=== PATIENT | female | born 1945 | race Asian ===

== ENCOUNTER 2017-02-01 21:21 | Emergency (ER) | payer MEDICARE, OTHER ==
[~2017-02-01] VITALS: Ht 152.4 cm; Wt 62.0 kg
[~2017-02-01 21:21] MED LIST: CEPH500C PO; CRES10 PO; CYCL-319 PO; GLIP5TAB13 PO; HYDR-3498 PO; IBUP-1542 PO; INSU100C3 SC; INSU100I15 SC; LEVO25TA53 PO; LIRA0.6P SQ; LOSA50TA6 PO; MTF1000T PO
[2017-02-01 21:23] VITALS: Ht 152.4 cm; Wt 62.0 kg
[2017-02-01] MEDS ORDERED: ACETAMINOPHEN 500 MG TAB PO STA (22:01)
--- NOTE | 2017-02-01 23:05 | RADRPT ---
PROCEDURE: XR left foot. CLINICAL INDICATION: Post traumatic left foot pain, injury 2 weeks ago TECHNIQUE: AP, lateral and oblique views of the left foot were obtained. COMPARISON: None. FINDINGS: Mineralization is within normal limits. Abnormal fracture involving the medial base of the second m etatarsal is present with divergence of the first and second metatarsal, findings consistent with a Lisfranc fracture dislocation. The metatarsal phalangeal and interphalangeal joints are intact. Th e tarsal bones appear preserved. The soft tissues are unremarkable. There is no evidence for a radi opaque foreign body. IMPRESSION: Pattern consistent with a Lisfranc fracture dislocation of the left foot. RPTAT:HJJR Physician Jack Date Time Electronically viewed and signed by Physician Jack on 02/01/2017 23:05 /
--- NOTE | 2017-02-01 23:05 | RADRPT ---
PROCEDURE: XR left ankle. CLINICAL INDICATION: Post traumatic left ankle pain after injury 2 weeks ago TECHNIQUE: AP , oblique and lateral views of the left ankle were performed. COMPARISON: None. FINDINGS: There is normal mineralization and alignment. No fracture or osseous lesion is identified. The ankle mortis and talar dome are intact. The soft tissues are unremarkable. There is no evidence for a rad iopaque foreign body. RPTAT:HJJR IMPRESSION: Unremarkable left ankle series. Physician Jack Date Time Electronically viewed and signed by Physician Jack on 02/01/2017 23:05 /
[2017-02-02] MEDS ORDERED: IBUP400T22 PO (01:52)
--- NOTE | 2017-02-02 02:01 | ERD ---
ER Documentation Chief Complaint Date/Time DATE: 02/02/17 TIME: 01:58 Chief Complaint left foot pain, sp trip and fall x 2 weeks HPI 71-year-old female with a past medical history of diabetes, hypertension, glaucoma presents the ED complaining of a left foot injury that occurred 2 weeks ago. States that she was in the [facility] and was trying to walk up the stairs and actually missed a step. Describes the pain as a sharp pain and rates it a 8 out of 10. States that she did not see a physician and the [facility]. Denies any chest pain, shortness of breath, loss of sensation, loss of range of motion, fever, chills, weakness, numbness or tingling. States that she is still able to ambulate however it is painful. ROS All systems reviewed and are negative except as per history of present illness. Medications Home Meds Active Scripts Ibuprofen* (Motrin*) 400 Mg Tab, 400 MG PO Q6H Y for PAIN AND OR ELEVATED TEMP, #30 TAB take with food Prov:DARRELL MEDEL PA-C 02/02/17 Hydrocodone Bit-Acetaminophen* ([place]*) 5-325 Mg Tab, 1 TAB PO Q6 Y for PAIN, # 20 TAB Prov:BRYANNA KHANNA NP 11/04/15 Ibuprofen* (Motrin*) 600 Mg Tab, 600 MG PO Q6H Y for PAIN AND OR ELEVATED TEMP, #30 TAB Prov:BRYANNA KHANNA NP 11/04/15 Cyclobenzaprine Hcl* (Cyclobenzaprine Hcl*) 10 Mg Tablet, 5 MG PO TID, #15 TAB Prov:BRYANNA KHANNA NP 11/04/15 Cephalexin* (Cephalexin*) 500 Mg Capsule, 500 MG PO BID for 5 Days, CAP Prov:IZZY PISANO PA-C 04/16/15 Reported Medications Glipizide* (Glipizide*) 5 Mg Tablet, PO DAILY, TAB 11/21/14 Liraglutide (Victoza 2-Aron) 0.6 Mg/0.1 Ml Pen.injctr, SQ DAILY, SYR 11/21/14 Insulin Aspart (Novolog) 100 U/Ml Cartridge, 0 SC SLIDING SCALE AC, EA 11/21/14 Insulin Glargine,Hum.rec.anlog (Lantus Solostar) 100 Units/Ml Pen, 0 SC DAILY 11/21/14 Losartan Potassium* (Losartan Potassium*) 50 Mg Tablet, PO DAILY, TAB 11/21/14 Rosuvastatin Calcium* (Crestor*) 10 Mg Tablet, PO HS, TAB 11/21/14 Levothyroxine Sodium* (Levothyroxine Sodium*) 25 Mcg Tablet, 25 MCG PO DAILY, TAB 11/21/14 Metformin* (Glucophage*) 1,000 Mg Tablet, 1000 MG PO BID, TAB 11/21/14 Allergies Allergies: Coded Allergies: Penicillins (Verified Allergy, Unknown, 11/04/15) PMhx/Soc History of Surgery: Yes (c/section, hysterectomy, left breast, cataract X 2) Anesthesia Reaction: No Hx Neurological Disorder: No Hx Respiratory Disorders: No Hx Cardiac Disorders: Yes (htn, dm) Hx Psychiatric Problems: No Hx Alcohol Use: No Hx Substance Use: No Hx Tobacco Use: No Smoking Status: Never smoker Physical Exam Vitals Vital Signs Date Time Temp Pulse Resp B/P Pulse Ox O2 Delivery O2 Flow Rate FiO2 02/01/17 21:23 97.6 88 20 128/66 100 Physical Exam Const: [id number], well-nourished. In no acute distress. Head: Atraumatic, normocephalic Eyes: Normal Conjunctiva without injection ENT: Normal external ear, nose and mouth. Neck: Full range of motion. No meningismus. Resp: Clear to auscultation bilaterally. No wheezing, rhonchi, rales, or crackles. No accessory muscle use. No retractions. Cardio: Regular rate and rhythm, no murmurs Skin: No petechiae or rashes Back: No midline tenderness. No CVA tenderness. Ext: No cyanosis, or edema. Tenderness to palpation of the dorsal aspect of patient's left mid foot region. Slightly edematous and erythematous. Cap refill less than 2 seconds. Distal pulses intact bilaterally. No ulcers noted. No deformities noted. Neur: Awake and alert. Normal gait and coordination. Muscle strength 5/5. Sensation intact bilaterally. Psych: Normal Mood and Affect Results 24 hrs Current Medications Medications (Trade) Dose Ordered Sig/Pedrito Route PRN Reason Start Time Stop Time Status Last Admin Dose Admin Acetaminophen (Tylenol Tab) 500 mg ONCE STAT PO 02/01/17 22:01 02/01/17 22:04 DC 02/01/17 22:16 Procedures/MDM This is a 71-year-old female with a past medical history of diabetes, hypertension, glaucoma presents the ED complaining of left foot pain status post a mechanical fall 2 weeks ago. Patient is afebrile nontoxic appearing. Patient has normal vital signs. Left foot and ankle x-ray was ordered to further evaluate patient. PROCEDURE: XR left ankle. CLINICAL INDICATION: Post traumatic left ankle pain after injury 2 weeks ago TECHNIQUE: AP , oblique and lateral views of the left ankle were performed. COMPARISON: None. FINDINGS: There is normal mineralization and alignment. No fracture or osseous lesion is identified. The ankle mortis and talar dome are intact. The soft tissues are unremarkable. There is no evidence for a radiopaque foreign body. RPTAT:HJJR IMPRESSION: Unremarkable left ankle series. PROCEDURE: XR left foot. CLINICAL INDICATION: Post traumatic left foot pain, injury 2 weeks ago TECHNIQUE: AP, lateral and oblique views of the left foot were obtained. COMPARISON: None. FINDINGS: Mineralization is within normal limits. Abnormal fracture involving the medial base of the second metatarsal is present with divergence of the first and second metatarsal, findings consistent with a Lisfranc fracture dislocation. The metatarsal phalangeal and interphalangeal joints are intact. The tarsal bones appear preserved. The soft tissues are unremarkable. There is no evidence for a radiopaque foreign body. IMPRESSION: Pattern consistent with a Lisfranc fracture dislocation of the left foot. Patient sustained a Lisfranc fracture dislocation of the left foot. This case was discussed with my supervising physician, Dr. Vicente who consulted Dr. shilo Charles, flight control specialist. Patient can be managed on outpatient basis and follow-up with him in the clinic. Patient is neurovascularly in tact. Patient is placed in a posterior ankle splint. Patient was given crutches to help with ambulation. Splint Assessment: Neurovascularly intact pre and post splint placement with good fit. Patient's extremity symptoms have stabilized while they have been evaluated in the department and are appropriate for outpatient follow up. No evidence of compartment syndrome, neurologic injury, vascular injury, open joint, open fracture, tendon laceration, septic arthritis, osteomyelitis, DVT, foreign body , or other emergent conditions. Discharge medications: Ibuprofen Follow up with primary care physician in 1-2 days. Instructed patient to return to the ED sooner for any worsening symptoms. Patient's questions were answered. Patient understood and agreed with discharge plan. Patient discharged stable. Departure Diagnosis: Primary Impression: Lisfranc fracture Condition: Stable Patient Instructions: Fracture, Foot Referrals: ROSAURA ZAMORANO MD [facility] YOU HAVE RECEIVED A MEDICAL SCREENING EXAM AND THE RESULTS INDICATE THAT YOU DO NOT HAVE A CONDITION THAT REQUIRES URGENT TREATMENT IN THE EMERGENCY DEPARTMENT. FURTHER EVALUATION AND TREATMENT OF YOUR CONDITION CAN WAIT UNTIL YOU ARE SEEN IN YOUR DOCTORS OFFICE WITHIN THE NEXT 1-2 DAYS. IT IS YOUR RESPONSIBILITY TO MAKE AN APPOINTMENT FOR FOLOW-UP CARE. IF YOU HAVE A PRIMARY DOCTOR --you should call your primary doctor and schedule an appointment IF YOU DO NOT HAVE A PRIMARY DOCTOR YOU CAN CALL OUR PHYSICIAN REFERRAL HOTLINE AT IF YOU CAN NOT AFFORD TO SEE A PHYSICIAN YOU CAN CHOSE FROM THE FOLLOWING [facility] [address] [facility]. [facility] [address] [facility] [address] [facility] [facility] [address] [facility] [facility] [address] [facility] [facility]. [address] [facility]. [facility] YOU HAVE RECEIVED A MEDICAL SCREENING EXAM AND THE RESULTS INDICATE THAT YOU DO NOT HAVE A CONDITION THAT REQUIRES URGENT TREATMENT IN THE EMERGENCY DEPARTMENT. FURTHER EVALUATION AND TREATMENT OF YOUR CONDITION CAN WAIT UNTIL YOU ARE SEEN IN YOUR DOCTORS OFFICE WITHIN THE NEXT 1-2 DAYS. IT IS YOUR RESPONSIBILITY TO MAKE AN APPOINTMENT FOR FOLOW-UP CARE. IF YOU HAVE A PRIMARY DOCTOR --you should call your primary doctor and schedule and appointment IF YOU DO NOT HAVE A PRIMARY DOCTOR YOU CAN CALL OUR PHYSICIAN REFERRAL HOTLINE AT . IF YOU CAN NOT AFFORD TO SEE A PHYSICIAN YOU CAN CHOSE FROM THE FOLLOWING [facility] INSTITUTIONS: [facility] [address] [place] [address] [facility] [address] [place] [address] [facility] [address] [place] [address] [facility] Urgent Care 7 a.m.- 11 p.m. Every Day of the Week NO APPOINTMENT OR AUTHORIZATION NEEDED SO [facility] Hours: Mon-Fri 9:00 AM - 5:00 PM Additional Instructions: YOUR CASE HAS BEEN DISCUSSED WITH DR. ZAMORANO, ROUGH ROUNDER MACHINE. FOLLOW UP WITH DR. ZAMORANO IN 2 DAYS IN THE CLINIC. Return to this facility if you are not improving as expected. DARRELL MEDEL PA-C Feb 02, 2017 02:01
[2017-02-02 02:38] VITALS: BP 116/67; PULSE 79; RESP 16
--- NOTE | 2017-02-02 04:01 | QN ---
Documentation Comment I examined the patient, discussed the patient with the on-call orthopedist Dr Mora who recommended discharging the patient and he would follow-up the patient in the office. The patient agrees with the plan ORLANDO MONTEMAYOR MD Feb 02, 2017 04:01
== END 2017-02-02 02:39 | disposition home or self-care (01) ==
LOC: FTE 21:21
DX: S93.325A Dislocation of tarsometatarsal joint of left foot, initial encounter (principal); I10 Essential (primary) hypertension; E11.9 Type 2 diabetes mellitus without complications; W01.0XXA Fall on same level from slipping, tripping and stumbling without subsequent striking against object, initial encounter; Y92.9 Unspecified place or not applicable; Z85.3 Personal history of malignant neoplasm of breast; Z79.84 Long term (current) use of oral hypoglycemic drugs; Z79.4 Long term (current) use of insulin
CPT/HCPCS: 73610

== ENCOUNTER 2018-08-25 22:24 | Inpatient (IN) | END 2018-08-29 16:30 | disposition home health service (06) | DRG 684 ==

== ENCOUNTER 2019-04-21 14:16 | Emergency (ER) | payer MEDICARE, OTHER ==
[~2019-04-21] VITALS: Wt 65.0 kg
[~2019-04-21 14:16] MED LIST changes: +AMLO-145 PO; +BRIM10DR10 BOTH EYES; -CEPH500C PO; -CRES10 PO; +CRES20 PO; -CYCL-319 PO; +DAPA10TA PO; +DORZ10DR6 BOTH EYES; -GLIP5TAB13 PO; -HYDR-3498 PO; -IBUP-1542 PO; -INSU100C3 SC; +INSU100I12 SQ; -INSU100I15 SC; +INSU100I33 SC; -LEVO25TA53 PO; +LEVO25TA6 PO; -LIRA0.6P SQ; +LOSA100T15 PO; -LOSA50TA6 PO; +METF100010 PO; -MTF1000T PO; +SITA100T11 PO; +TRAV2.5D BOTH EYES
--- NOTE | 2019-04-21 15:14 | ERD ---
ER Documentation Chief Complaint Chief Complaint SOB ONSET LAST HPI 74-year-old woman complains of shortness of breath x4 days, she denies cough, no chest pain, no URI symptoms, no recent travel, no calf or leg swelling. Patient denies abdominal pain, no vomiting or diarrhea. Patient denies previous similar symptoms ROS All systems reviewed and are negative except as per history of present illness. Medications Home Meds Reported Medications Glucosamine Hcl (Glucosamine Hcl) Unknown Strength Tablet, 1 TAB PO DAILY, TAB 04/21/19 Insulin Glargine,Hum.rec.anlog (Basaglar Kwikpen U-100) 100 Unit/1 Ml Insuln.pen, 30 UNIT SC QAM, EA 04/21/19 Insulin Lispro (Humalog Kwikpen U-100) 100 Unit/1 Ml Insuln.pen, 0 SQ TID, EA INJECT 6 UNITS-QAM,4 UNITS-NOON,4 UNITS-QPM WITH MEALS 04/21/19 Aspirin* (Aspirin* EC) 81 Mg Tablet.dr, 81 MG PO DAILY, TAB 04/21/19 Losartan Potassium* (Losartan Potassium*) 50 Mg Tablet, 50 MG PO DAILY, TAB 04/21/19 Sitagliptin* (Januvia*) 100 Mg Tablet, 100 MG PO DAILY, #30 TAB 04/21/19 Rosuvastatin Calcium* (Crestor*) 20 Mg Tablet, 20 MG PO QHS, #30 TAB 04/21/19 Metformin Hcl* (Metformin Hcl*) 1,000 Mg Tablet, 1000 MG PO WITH BREAKFAST DINNE, #60 TAB 04/21/19 Levothyroxine Sodium* (Levothyroxine Sodium*) 25 Mcg Tablet, 25 MCG PO BEFORE BREAKFAST, #30 TAB 04/21/19 Travoprost* (Travatan Z*) 2.5 Ml Drops, 1 DROP BOTH EYES HS, #1 BOTTLE 04/21/19 Dapagliflozin Propanediol (Farxiga) 10 Mg Tablet, 10 MG PO DAILY, #30 TAB 04/21/19 Brimonidine Tartrate* (Alphagan P*) 0.1%-15 Ml Opht Drops, 1 DROP BOTH EYES Q8, #1 EA 04/21/19 Discontinued Reported Medications Losartan Potassium* (Losartan Potassium*) 100 Mg Tablet, 100 MG PO DAILY, TAB 08/25/18 Rosuvastatin Calcium* (Crestor*) 20 Mg Tablet, 20 MG PO QHS, #30 TAB 08/25/18 Levothyroxine Sodium* (Levothyroxine Sodium*) Unknown Strength Tablet, 1 TAB PO BEFORE BREAKFAST, #30 TAB 08/25/18 Dapagliflozin Propanediol (Farxiga) 10 Mg Tablet, 10 MG PO DAILY, #30 TAB 08/25/18 Travoprost* (Travatan Z*) 2.5 Ml Drops, 1 DROP BOTH EYES HS, #1 BOTTLE 08/25/18 Brimonidine Tartrate* (Brimonidine Tartrate*) 0.15%-10ML Drop Opht, 1 DROP BOTH EYES Q8, #1 EA 08/25/18 Dorzolamide/Timolol* (Dorzolamide/Timolol*) 10 Ml Drops, 1 DROP BOTH EYES BID, #1 EA 08/25/18 Sitagliptin* (Januvia*) 100 Mg Tablet, 100 MG PO DAILY, #30 TAB 08/25/18 Metformin Hcl* (Metformin Hcl*) 1,000 Mg Tablet, 1000 MG PO WITH BREAKFAST DINNE, #60 TAB 08/25/18 Insulin Lispro (Humalog Kwikpen U-100) 100 Unit/1 Ml Insuln.pen, SQ SLIDING SCALE, EA INJECT 6 UNITS-QAM, 4 UNITS-NOON, 4 UNITS-QPM 08/25/18 Discontinued Scripts Amlodipine Besylate* (Amlodipine Besylate*) 5 Mg Tablet, 5 MG PO DAILY for 30 Days, #30 TAB 6 Refills Prov:CANDICE ROSALES MD 08/29/18 Insulin Glargine,Hum.rec.anlog (Basaglar Kwikpen U-100) 100 Unit/1 Ml Insul n.pen, 30 UNITS SC QAM for 30 Days, #10 EA 6 Refills Prov:CANDICE ROSALES MD 08/29/18 Allergies Allergies: Coded Allergies: Penicillins (Verified Allergy, Unknown, 04/21/19) PMhx/Soc History of INDIGO, diabetes mellitus, glaucoma, hypertension, hypothyroidism History of Surgery: Yes (, hysterectomy,left breast mastectomy,cataract) Anesthesia Reaction: No Hx Neurological Disorder: No Hx Respiratory Disorders: No Hx Cardiac Disorders: Yes (htn) Hx Psychiatric Problems: No Hx Miscellaneous Medical Probl: Yes (DM) Hx Alcohol Use: No Hx Substance Use: No Hx Tobacco Use: No Smoking Status: Never smoker Physical Exam Vitals Vital Signs Date Temp Pulse Resp B/P (MAP) Pulse Ox O2 O2 Flow FiO2 Time Delivery Rate 04/21/19 97.6 70 26 124/61 95 Room Air 17:44 (82) 04/21/19 70 20 128/66 100 Room Air 17:01 (86) 04/21/19 77 23 120/73 96 15:04 (89) 04/21/19 98.1 84 18 131/80 96 14:25 (97) Physical Exam GENERAL: Well-developed, well-nourished, well-hydrated, anxious, afebrile HEENT: Moist mucous membranes, pink conjunctiva, no cervical spine tenderness or step-off deformities, no goiter, no jaundice or icterus, extraocular movements intact without pain. No submandibular induration, and no pharyngeal erythema NEURO: Alert and oriented 3, cranial nerves II through XII intact bilaterally, pupils equal round reactive to light, no focal deficits or facial asymmetry, sensation intact distally Strength 5/5 in upper and lower extremities bilaterally CARDIAC: Regular rate and rhythm, no murmurs rubs or gallops LUNGS: Clear bilaterally no wheezing crackles or stridor ABDOMEN: Soft nontender, no guarding, no rigidity, no rebound, no psoas sign no obturator sign. Normoactive bowel sounds SKIN: Warm and dry to touch, no abrasions, contusions, or hematomas, no lacerations, no ecchymosis, no target lesions, and without ulcers EXTREMITIES: No clubbing cyanosis or edema, calves are bilaterally symmetrical, no Homans sign, no popliteal cord sign. Distal pulses equal and bilateral PSYCH: Appears anxious Result Diagram: 04/21/19 1524 04/21/19 1524 Results 24 hrs Laboratory Tests Test 04/21/19 15:24 04/21/19 16:24 04/21/19 17:32 White Blood Count 8.3 10^3/ul Red Blood Count 4.79 10^6/ul Hemoglobin 13.8 g/dl Hematocrit 42.2 % Mean Corpuscular Volume 88.1 fl Mean Corpuscular Hemoglobin 28.8 pg Mean Corpuscular 32.7 g/dl Hemoglobin Concent Red Cell Distribution Width 13.8 % Platelet Count 221 10^3/UL Mean Platelet Volume 11.0 fl Immature Granulocytes % 0.500 % Neutrophils % 46.0 % Lymphocytes % 43.0 % Monocytes % 7.7 % Eosinophils % 1.8 % Basophils % 1.0 % Nucleated Red Blood Cells % 0.0 /100WBC Immature Granulocytes # 0.040 10^3/ul Neutrophils # 3.8 10^3/ul Lymphocytes # 3.6 10^3/ul Monocytes # 0.6 10^3/ul Eosinophils # 0.2 10^3/ul Basophils # 0.1 10^3/ul Nucleated Red Blood Cells # 0.0 10^3/ul D-Dimer 335.76 ng/ml D-Dimer Comment Urine Color STRAW Urine Clarity CLEAR Urine pH 6.0 Urine Specific [place] 1.022 Urine Ketones NEGATIVE mg/dL Urine Nitrite NEGATIVE mg/dL Urine Bilirubin NEGATIVE mg/dL Urine Urobilinogen NEGATIVE mg/dL Urine Leukocyte Esterase NEGATIVE [place]/ul Urine Hemoglobin NEGATIVE mg/dL Urine Glucose 3+ mg/dL Urine Total Protein NEGATIVE mg/dl Sodium Level 137 mmol/L Potassium Level 4.8 mmol/L Chloride Level 99 mmol/L Carbon Dioxide Level 26 mmol/L Anion Gap 12 Blood Urea Nitrogen 22 mg/dl Creatinine 0.78 mg/dl Est Glomerular Filtrat mL/min Rate mL/min Glucose Level 407 mg/dl Calcium Level 10.0 mg/dl Total Bilirubin 0.5 mg/dl Direct Bilirubin 0.00 mg/dl Indirect Bilirubin 0.5 mg/dl Aspartate Amino Transf (AST/SGOT) 28 IU/L Alanine 25 IU/L Aminotransferase (ALT/SGPT) Alkaline Phosphatase 116 IU/L Troponin I < 0.012 ng/ml B-Type Natriuretic Peptide 14 PG/ML Total Protein 8.3 g/dl Albumin 4.5 g/dl Globulin 3.80 g/dl Albumin/Globulin Ratio 1.18 Lipase 383 U/L Bedside Glucose 312 mg/dL 221 mg/dL Current Medications Medications Dose Sig/Pedrito Start Time Status Last (Trade) Ordered Route PRN Stop Time Admin Dose Reason Admin Insulin 16 unit ONCE ONCE 04/21/19 DC 04/21/19 Human SC 16:30 16:26 Lispro 04/21/19 16:31 (Humalog) Diagnostic 1 ea 2 HRS AFTER 04/21/19 DC 04/21/19 Test (Pha) HUMALOG ONCE 16:30 16:30 (Accu-Chek) XX 04/21/19 16:31 Sodium 1,000 ml @ Q1H STAT 04/21/19 DC 04/21/19 Chloride 1,000 mls/hr IV 16:14 16:21 04/21/19 17:13 Alprazolam 0.5 mg ONCE ONCE 04/21/19 DC 04/21/19 (Xanax) PO 16:30 16:37 04/21/19 16:31 Procedures/MDM IV line was established patient was placed on cable spooler rhythm strip revealed a sinus rhythm at about 80 bpm with upright P and T waves. Patient was afebrile One AP view of the chest performed, read by me reveals no acute infiltrates, normal mediastinum, sharp costophrenic and cardiac borders, no air under the diaphragm. Otherwise unremarkable chest x-ray. EKG performed, read by me revealed a normal sinus rhythm at 78 bpm, normal axis, narrow QRS complex, no concerning ST elevations or depressions noted, upright U waves noted Patient's blood sugar was elevated to 407 although bicarb was normal and she has no signs of diabetic ketoacidosis. I administered 1 L normal saline IV for hyperglycemia, alprazolam p.o. for anxie ty, and subcutaneous insulin Differential diagnoses considered, included but not limited to acute coronary syndrome, pulmonary embolism, aortic dissection, abdominal aortic aneurysm, sepsis, stroke, meningitis, encephalitis, pneumonia, appendicitis, cholecystitis, bowel obstruction, pyelonephritis, nephrolithiasis, cystitis, as well as metabolic, hematologic, and electrolyte abnormalities. As well as abscess, cellulitis, fractures, and dislocations. Patient feels much better at this time, and vital signs are normal, symptoms have improved. I did give strict instructions to return to the ED if symptoms continue or worsen, patient will otherwise follow-up with primary care physician. Patient understood instructions and agreed to plan. Disclaimer: Inadvertent spelling and grammatical errors are likely due to EHR/dictation software use and do not reflect on the overall quality of patient care. Also, please note that the electronic time recorded on this note does not necessarily reflect the actual time of the patient encounter. Departure Diagnosis: Primary Impression: Shortness of breath Additional Impressions: Acute hyperglycemia Acute dehydration Condition: Good MILLICENT DAVIS MD Apr 21, 2019 15:14
[2019-04-21] MEDS ORDERED: DAPA10TA PO (16:01)
[2019-04-21] MEDS ORDERED: TRAV2.5D BOTH EYES (16:01)
[2019-04-21] MEDS ORDERED: BRIM15DR2 BOTH EYES (16:01)
[2019-04-21] MEDS ORDERED: METF100010 PO (16:02)
[2019-04-21] MEDS ORDERED: LEVO25TA6 PO (16:02)
[2019-04-21] MEDS ORDERED: CRES20 PO (16:03)
[2019-04-21] MEDS ORDERED: SITA100T11 PO (16:03)
[2019-04-21] MEDS ORDERED: ASPI-817 PO (16:04)
[2019-04-21] MEDS ORDERED: LOSA50TA14 PO (16:04)
[2019-04-21] MEDS ORDERED: INSU100I12 SQ (16:05)
[2019-04-21] MEDS ORDERED: INSU100I33 SC (16:06)
[2019-04-21] MEDS ORDERED: GLUC500T11 PO (16:09)
[2019-04-21] MEDS ORDERED: SOD CHLORIDE 0.9% 1,000 ML IV STA (16:14)
[2019-04-21] MEDS ORDERED: INSULIN LISPRO 100 UNIT/ML VIAL SC ONE (16:30)
[2019-04-21] MEDS ORDERED: ALPRAZOLAM 0.25 MG TAB PO ONE (16:30)
[2019-04-21] MEDS ORDERED: ACCU-CHEK XX ONE (16:30)
[2019-04-21 17:44] VITALS: BP 124/61; PULSE 70; RESP 26
== END 2019-04-21 17:45 | disposition home or self-care (01) ==
LOC: E/R 14:16
DX: E11.65 Type 2 diabetes mellitus with hyperglycemia (principal); E86.0 Dehydration; E11.9 Type 2 diabetes mellitus without complications; I10 Essential (primary) hypertension; E03.9 Hypothyroidism, unspecified; Z79.4 Long term (current) use of insulin; Z79.82 Long term (current) use of aspirin
CPT/HCPCS: 36415; 71045; 80053; 81003; 82962; 83690; 83880; 84484; 85025; 85378; 93005; 96360; 96372; 99285; J1815; J7030